=== PATIENT | female | born 1985 | race American Indian/Alaskan Native ===

== ENCOUNTER 2017-05-04 17:03 | Emergency (ER) | payer SELFPAY ==
[2017-05-04 17:19] VITALS: BP 137/88
[2017-05-04] MEDS ORDERED: DECADRON IM ONE (18:15)
--- NOTE | 2017-05-04 18:15 | Emergency Department Report ---
ED General Adult HPI - General Chief complaint: Upper Respiratory Infection Stated complaint: COUGH/COLD/CHEST PAIN/CONGESTION Time Seen by Provider: 05/04/17 17:44 Source: patient Mode of arrival: Ambulatory Limitations: No Limitations - History of Present Illness Initial comments: 31 year old female presents with sinus congestion, pressure, cough, sore throat for about 3 weeks. states that she is constantly coughing up green and yellow sputum. states taking otc medication with no relief. states that now she is getting substernal chest pain with the associated cough. denies fever, sob, abdominal pain. -: Gradual, days(s), week(s) (3) Radiation: non-radiation Associated Symptoms: chest pain, cough. denies: confusion, diaphoresis - Related Data Previous Rx's Medication Instructions Recorded Last Taken Type ALBUTEROL Inhaler [ProAir HFA 2 puff IH QID PRN #1 inhalation 05/04/17 Unknown Rx Inhaler] Azithromycin [Zithromax Z-ALAYNA] 250 mg PO QDAY #1 tablet 05/04/17 Unknown Rx Guaifenesin/Codeine Phosphate 5 ml PO Q6H #118 ml 05/04/17 Unknown Rx [Guaifen-Codeine 100-10 mg/5 ml] Prednisone [predniSONE 10 mg 10 mg PO .TAPER #1 tab.ds.pk 05/04/17 Unknown Rx (6-Day Pack, 21 Tabs)] Allergies Allergy/AdvReac Type Severity Reaction Status Date / Time No Known Allergies Allergy Unverified 05/04/17 17:14 ED Review of Systems ROS: Stated complaint: COUGH/COLD/CHEST PAIN/CONGESTION Other details as noted in HPI Constitutional: denies: chills, fever Eyes: denies: eye pain, eye discharge, vision change ENT: throat pain, congestion. denies: ear pain Respiratory: cough. denies: shortness of breath, wheezing Cardiovascular: denies: chest pain, palpitations Endocrine: no symptoms reported Gastrointestinal: denies: abdominal pain, nausea, diarrhea Genitourinary: denies: urgency, dysuria, discharge Musculoskeletal: denies: back pain, joint swelling, arthralgia Skin: denies: rash, lesions Neurological: denies: headache, weakness, paresthesias Psychiatric: denies: anxiety, depression Hematological/Lymphatic: denies: easy bleeding, easy bruising ED Past Medical Hx - Past Medical History Additional medical history: DDD - Surgical History Additional Surgical History: X 3. TUBAL LIGATION - Social History Smoking Status: Current Every Day Smoker Substance Use Type: None - Medications Home Medications: Home Medications Medication Instructions Recorded Confirmed Last Taken Type ALBUTEROL Inhaler [ProAir HFA 2 puff IH QID PRN #1 inhalation 05/04/17 Unknown Rx Inhaler] Azithromycin [Zithromax Z-ALAYNA] 250 mg PO QDAY #1 tablet 05/04/17 Unknown Rx Guaifenesin/Codeine Phosphate 5 ml PO Q6H #118 ml 05/04/17 Unknown Rx [Guaifen-Codeine 100-10 mg/5 ml] Prednisone [predniSONE 10 mg 10 mg PO .TAPER #1 tab.ds.pk 05/04/17 Unknown Rx (6-Day Pack, 21 Tabs)] ED Physical Exam - General Limitations: No Limitations General appearance: alert, in no apparent distress - Head Head exam: Present: atraumatic, normocephalic - Eye Eye exam: Present: normal appearance - ENT ENT exam: Present: normal orophraynx, mucous membranes moist, TM's normal bilaterally, normal external ear exam - Neck Neck exam: Present: normal inspection, full ROM. Absent: tenderness, meningismus, lymphadenopathy - Respiratory Respiratory exam: Present: normal lung sounds bilaterally. Absent: respiratory distress, wheezes, rales, rhonchi, stridor - Cardiovascular Cardiovascular Exam: Present: regular rate, normal rhythm. Absent: systolic murmur, diastolic murmur, rubs, gallop - GI/Abdominal GI/Abdominal exam: Present: soft, normal bowel sounds - Extremities Exam Extremities exam: Present: normal inspection - Back Exam Back exam: Present: normal inspection - Neurological Exam Neurological exam: Present: alert, oriented X3 - Psychiatric Psychiatric exam: Present: normal affect, normal mood - Skin Skin exam: Present: warm, dry, intact, normal color. Absent: rash ED Course Vital Signs 05/04/17 17:16 Temperature 98.8 F Pulse Rate 83 Respiratory 18 Rate Blood Pressure 137/88 O2 Sat by Pulse 100 Oximetry ED Medical Decision Making - Medical Decision Making patient is resting comfortably. will start on abx for sinus and steroids/ inhaler. VSS and CXR is normal in the ED. Critical care attestation.: If time is entered above; I have spent that time in minutes in the direct care of this critically ill patient, excluding procedure time. ED Disposition Clinical Impression: Acute bronchitis, Acute sinusitis Disposition: DC-01 TO HOME OR SELFCARE Is pt being admited?: No Does the pt Need Aspirin: No Condition: Good Instructions: Acute Bronchitis (ED) Additional Instructions: take medication as prescribed. Prescriptions: ALBUTEROL Inhaler [ProAir HFA Inhaler] 2 puff IH QID PRN #1 inhalation PRN Reason: Shortness Of Breath Azithromycin [Zithromax Z-ALAYNA] 250 mg PO QDAY #1 tablet Guaifenesin/Codeine Phosphate [Guaifen-Codeine 100-10 mg/5 ml] 5 ml PO Q6H #118 ml Prednisone [predniSONE 10 mg (6-Day Pack, 21 Tabs)] 10 mg PO .TAPER #1 tab.ds.pk Referrals: MARCELA GREGORIO MD [Staff Physician] - 3-5 Days Forms: Work/School Release Form(ED) Time of Disposition: 18:15
--- NOTE | 2017-05-04 19:10 | XRay Report ---
FINAL REPORT EXAM: XR CHEST ROUTINE 2V HISTORY: CHEST PAIN / CONGESTION / COUGH TECHNIQUE: Frontal and lateral chest x-ray. PRIORS: None. FINDINGS: Cardiac and mediastinal silhouette within normal limits. Lungs are normally expanded. No focal consolidation, pleural effusions or apparent pneumothorax. IMPRESSION: 1. No acute consolidation.
== END 2017-05-04 19:05 | disposition home or self-care (01) ==
LOC: ED 17:03
DX: J20.9 Acute bronchitis, unspecified (principal); J01.90 Acute sinusitis, unspecified; F17.210 Nicotine dependence, cigarettes, uncomplicated
CPT/HCPCS: 71020; 96372; 99283; J1100